=== PATIENT | female | born 1960 | race Caucasian/White ===

== ENCOUNTER 2021-12-06 16:52 | Emergency (ER) | payer OTHER ==
[2021-12-06] MEDS ORDERED: IBUPROFEN800 MG PO (19:01)
[2021-12-06] MEDS ORDERED: NORCO 5-325 TA1 EACH PO (19:01)
[2021-12-09] MEDS ORDERED: WELLBUTRIN75 MG PO (13:42)
[2021-12-09] MEDS ORDERED: NEXIUM40 MG PO (13:42)
[2021-12-09] MEDS ORDERED: WELLBUTRIN XL150 MG PO (13:42)
[2021-12-09] MEDS ORDERED: INDERAL20 MG PO (13:43)
[2021-12-09] MEDS ORDERED: XANAX0.5 MG PO (13:43)
[2021-12-09] MEDS ORDERED: PREMPRO 0.625-1 EACH PO (13:44)
== END 2021-12-06 19:45 | disposition home or self-care (01) ==
LOC: FER 16:52
DX: S52.502A Unspecified fracture of the lower end of left radius, initial encounter for closed fracture (principal); I10 Essential (primary) hypertension; K21.9 Gastro-esophageal reflux disease without esophagitis; F17.210 Nicotine dependence, cigarettes, uncomplicated; Z79.899 Other long term (current) drug therapy; W19.XXXA Unspecified fall, initial encounter
CPT/HCPCS: 73110

== ENCOUNTER 2021-12-24 13:08 | Emergency (ER) | payer OTHER ==
[~2021-12-24 13:08] MED LIST: IBUPROFEN800 MG PO; INDERAL20 MG PO; NEXIUM40 MG PO; NORCO 5-325 TA1 EACH PO; PREMPRO 0.625-1 EACH PO; WELLBUTRIN XL150 MG PO; WELLBUTRIN75 MG PO; XANAX0.5 MG PO
== END 2021-12-24 17:11 | disposition home or self-care (01) ==
LOC: FER 13:08
DX: S52.572D Other intraarticular fracture of lower end of left radius, subsequent encounter for closed fracture with routine healing (principal); X58.XXXD Exposure to other specified factors, subsequent encounter
CPT/HCPCS: 99282